=== PATIENT | female | born 1940 | race Caucasian/White ===

== ENCOUNTER → 2019-05-28 | Outpatient (CLI) | payer MEDICARE ==
[~2019-05-28] MED LIST: ALLERGY MED; APRISO0.375 GM PO; ASPIRIN PO; ASPIRIN325 MG PO; ATORVASTATIN CA20 MG PO; BYSTOLIC5 MG PO; CEPHALEXIN500 MG PO; DIPHENHYDRAMINE25 M1 PO; ESTRACE 0.01%; GAVISCON PO; IBUPROFEN200 MG PO; LIPITOR20 MG PO; MESALAMINE4 GM/60 ML RC; METRONIDAZOL; MYLICON40 MG/0.6 PO; NASAL SPRAY30 ML; NYSTATIN100000 UN1 PO; SUCRALFATE1 GM PO; SUDAFED; Z.0.TYLENOL325 MG PO
--- NOTE | 2019-05-28 15:18 | Diagnostic Imaging Report ---
MRI of the left shoulder without contrast. History: Shoulder pain. Fall. Rotator cuff tear Comparison: None Technique: Coronal PD FS, sagital PD FS, and axial PD and PD FS. Findings: Rotator cuff: Rotator cuff tendinosis with full-thickness tear involving the supraspinatus infraspinatus and anterior fibers of the subscapularis tendons at the humeral insertion site. There is retraction of the torn fibers to the level of the glenoid and there is marked muscle atrophy as seen on sagittal image 24. The teres minor tendon is intact. Osseous acromion complex: Type II acromion with mild lateral downsloping. Moderate degenerative arthrosis at the acromioclavicular joint with undersurface spurring. The humeral head approaches the undersurface of the acromion. Moderate subacromial/subdeltoid bursitis. Glenohumeral joint: Circumferential degenerative type tearing of the labrum. The articular cartilage surfaces are thinned with regions of fraying and fissuring. Large effusion/synovitis in the rotator interval and subcoracoid space. Biceps tendon: The long head of the biceps tendon is torn and retracted proximally along the shaft of the humerus. Other findings: Negative for muscle denervation or osseous fracture. Impression: Full-thickness rotator cuff tear with retraction and muscle atrophy as described above. Degenerative arthrosis at the acromioclavicular joint with moderate subacromial/subdeltoid bursitis. Degenerative arthrosis in the glenohumeral joint with large effusion/synovitis in the rotator interval and subcoracoid space. The long head of the biceps tendon is torn and retracted proximally along the shaft of the humerus. Signed by: Dr. Fuad Knight M.D. on 05/28/2019 3:15 PM
== END ==
LOC: MRI 13:09
PROVIDERS: ATTEND Specialist
DX: M75.122 Complete rotator cuff tear or rupture of left shoulder, not specified as traumatic (principal)